=== PATIENT | female | born 1930 | race Caucasian/White ===

== ENCOUNTER 2016-09-24 13:16 | Inpatient (IN) | payer MEDICARE, OTHER ==
--- NOTE | ~2016-09-24 | CN ---
Consultation Report [facility] [address] [place]. [address] NAME: BARTOLOME PERALTA : 28 STATUS : ADM IN [facility]#: [id number] AGE: 86 ADM/REG DATE : 09/24/16 MR#: [id number] REPORT SERV DATE: 09/28/16 DICTATED BY: ABEL BRUNSON DATE: 09/28/16 REPORT STATUS : Draft TRANSCRIBED BY: MODDavid DATE: 09/28/16 INFECTIOUS DISEASE CONSULT DATE OF CONSULTATION: REASON FOR REFERRAL: Evaluation and treatment of pneumococcal pneumonia and sepsis. HISTORY OF PRESENT ILLNESS: The patient is an 86-year-old female with a history of overall good health. She has hyperlipidemia and hypothyroidism. She has had episodes of paroxysmal atrial fibrillation. She came in on 09/24/2016, feeling quite ill. She had become ill one week before with fever, cough, increased shortness of breath. It grew progressively worse to the point she was having trouble getting around on the day of admission. She had atrial fibrillation with rapid ventricular response, fever over 101, a white blood cell count that was elevated at 13,000. A chest x-ray in the emergency room showed a right lower lobe pneumonia. Cultures were taken, and she was begun empirically on Rocephin and azithromycin. She had a positive urine antigen for pneumococcus and also blood cultures were positive for the organism two of two, with the sensitivity that appeared on 09/26/2016 showing it to be pansensitive. She was changed to Levaquin, but became confused, started having hallucinations and felt that she was going to , so that was changed yesterday back to Rocephin. She has been afebrile since the second hospital day. Her white blood cell counts decreased to normal. She has not had any further chest x-rays, but she feels much better, getting up and walking with only minimal assistance. She says she has had pneumococcal immunizations twice in the past, but she is not sure if she has had the Prevnar. PAST MEDICAL HISTORY: Otherwise unremarkable. MEDICATIONS: As mentioned above. ALLERGIES: NO KNOWN ANTIMICROBIAL ALLERGIES, THOUGH OBVIOUSLY SHE HAS INTOLERANCE TO LEVAQUIN. SOCIAL HISTORY: She is , lives with her sister, lifelong nonsmoker. No history of alcohol or substance abuse. FAMILY HISTORY: Noncontributory. PHYSICAL EXAMINATION: GENERAL: A nontoxic, elderly female, in no acute distress. She is alert and oriented x3. VITAL SIGNS: Temperature at present 96.9, pulse 112, respirations 18, blood pressure 142/82. Her weight is 86 kg. HEENT: Sclerae are clear. No oral lesions. NECK: Supple without lymphadenopathy or meningeal signs. LUNGS: There is still heavy rhonchi heard in the right base, but no signs of consolidation. Consultation Report [address] [place] [facility] [address] NAME: BARTOLOME PERALTA : 29 STATUS : ADM IN PAT#: [id number] AGE: 86 ADM/REG DATE : 09/24/16 MR#: [id number] REPORT SERV DATE: 09/28/16 DICTATED BY: ABEL BRUNSON DATE: 09/28/16 REPORT STATUS : Draft TRANSCRIBED BY: ANTELMO DATE: 09/28/16 HEART: Irregular. ABDOMEN: Soft, nontender. Positive bowel sounds. EXTREMITIES: Without clubbing or cyanosis. Some mild edema in her lower extremities, but no signs of cellulitis or soft tissue lesions. IV site shows no signs of inflammation. LABORATORY DATA: White blood cell count at admission was 13,000 with unremarkable differential. It is 6.7 today with hematocrit of 41.6 and platelets 258. BUN and creatinine 16 and 0.84. Procalcitonin 4.73 when she came in, was 2.11 when checked last yesterday. IMPRESSION: Pneumococcal pneumonia with associated sepsis. She has responded exceptionally well considering her age to antibiotics so far. RECOMMENDATIONS: 1. I agree with all the antibiotic therapy that has been given thus far. 2. I would recommend five more days because of positive blood cultures, but she is doing so well, I think that could be changed to oral amoxicillin. 3. We will follow if she stays, though I think she is doing well enough that when she gets her dose of Rocephin today, which will cover her with IV level therapy for 24 hours, she could probably be discharged late this afternoon and continue the amoxicillin at home. I appreciate very much your consulting on this patient. ROMY Abel Brunson M.D. / [id number] CC: Karely ePng M.D.
--- NOTE | ~2016-09-24 | DS ---
Discharge Summary [address] [place]. [address] NAME: BARTOLOME PERALTA : 28 STATUS : DIS IN PAT#: [id number] AGE: 86 ADM/REG DATE : 09/24/16 MR#: [id number] REPORT SERV DATE: 09/29/16 DICTATED BY: KEN DENNY DATE: 09/28/16 REPORT STATUS : Draft TRANSCRIBED BY: MODL DATE: 09/28/16 ADMISSION DATE: 09/24/2016 DISCHARGE DATE: 09/28/2016 DISCHARGE DIAGNOSES: 1. Streptococcal pneumonia, sepsis. 2. Streptococcal pneumonia, bacteremia. 3. Streptococcal pneumonia, pneumonia. 4. Adverse drug reaction to Levaquin with hallucinations and insomnia. 5. Hypertension history. 6. Orthostatic hypotension on home blood pressure regimen. 7. Chronic atrial fibrillation. 8. History of deep venous thrombosis. 9. Chronic Coumadin anticoagulation. 10.Deconditioning associated with present illness. 11.Hyperlipidemia. 12.Gastroesophageal reflux disease. 13.Hypothyroidism. 14.Depression. 15.Prediabetes. OPERATIONS AND PROCEDURES: None. PRESENT ILLNESS: This is an 86-year-old white female who was triaged in the emergency room on 09/24/2016 at 1316 hours with symptoms of fainting, chilling, and coughing blood. Her admission vital signs were blood pressure 146/76, temp 99.5, pulse 138, respirations 18, and O2 saturation 95%. In the emergency room, an EKG showed atrial fibrillation with rapid ventricular response and a chest x-ray showed a right lower lobe pneumonia. She was referred to the hospitalist service for admission. She was seen by Dr. Guzman and admitted as described on admission history and physical examination. Additional history included a week of not feeling well with subjective fevers, cough, bloody sputum, and shortness of breath. ADDITIONAL HISTORY: Per Dr. Guzman. PHYSICAL EXAMINATION: Per Dr. Guzman. ADMISSION LABORATORY: Per Dr. Guzman. HOSPITAL COURSE: She was admitted to [address] [place] [address] with: Discharge Summary [address] [place]. [address] NAME: BARTOLOME PERALTA : 28 STATUS : DIS IN PAT#: [id number] AGE: 86 ADM/REG DATE : 09/24/16 MR#: [id number] REPORT SERV DATE: 09/29/16 DICTATED BY: KEN DENNY DATE: 09/28/16 REPORT STATUS : Draft TRANSCRIBED BY: MODDavid DATE: 09/28/16 1. Community-acquired pneumonia with sepsis. 2. Atrial fibrillation with rapid ventricular response. All in the setting of the above-mentioned comorbidities. On admission, cultures were obtained. She was started on Rocephin and Zithromax. A Cardizem drip was initiated along with her home medications. She was seen by Dr. Guzman on 09/24/2016, 09/25/2016, and 09/26/2016. On 09/26/2016, she had significantly improved and was transitioned to p.o. Levaquin with the possibility of 09/27/2016 discharge. She was seen by the undersigned on 09/27/2016. She felt weaker. She had orthostatic symptoms. She was having visual hallucinations without headache or other focal neurologic symptoms. She had not slept the previous night. From a pneumonia standpoint, her cough and dyspnea were improved as was her appetite. On exam, she was orthostatic. She was nonfocal neurologically. It was felt she was having an adverse drug reaction from Levaquin and was orthostatic from her home antihypertensive therapy. Her blood cultures were positive for streptococcal pneumonia. Her urinary antigen was also positive. She was placed back on Rocephin. Her antihypertensive therapy was adjusted. When seen on 09/28/2016 at approximately 11:20, she was still weak, but her hallucinations had largely resolved. She had slept. She had minimal cough and dyspnea. Her appetite was improved. Her orthostasis had improved. She thought she could manage at home. ID consultation was obtained for consideration of parenteral antibiotic therapy at home. She was seen by Dr. Shaheen Blankenship. He thought she was doing so well that she could be changed to oral amoxicillin to complete five further days of therapy and could safely be discharged. She was seen again by the undersigned at 1630 hours. She was ambulated with her walker. She was steady with ambulation. Her O2 sats remained well above 90 at rest and walking. She did have some increase in her atrial fibrillation rate with activity from 83 lying, 100 sitting, 126 walking. Her blood pressure post walking was 111/79. At this point, it was felt she had achieved a level of improvement and stability where she could be safely discharged home. She has family support. She will also have home health care arranged for physical therapy eval and treatment, medication reconciliation, and home evaluation. She will continue her home diet. She was asked to see Dr. Rivas within one week. Discharge Summary [address] [place]. [address] NAME: BARTOLOME PERALTA : 28 STATUS : DIS IN PAT#: [id number] AGE: 86 ADM/REG DATE : 09/24/16 MR#: [id number] REPORT SERV DATE: 09/29/16 DICTATED BY: KEN DENNY DATE: 09/28/16 REPORT STATUS : Draft TRANSCRIBED BY: MODDavid DATE: 09/28/16 DISCHARGE MEDICATIONS: Pending outpatient followup: Lexapro 10 mg daily; Synthroid 75 mcg daily; Toprol-XL 25 mg daily, dose to be escalated next week if AFib rate not controlled with activity; Coumadin 3 mg Monday, Monday, Monday, Monday, Monday, 2 mg Monday and ; Coumadin to be started in 24 hours, noting INR of 2.8 today; Benadryl 25 mg at night as needed; tramadol 50 mg twice daily as needed; amoxicillin 500 mg twice daily, #15. Pending outpatient followup, she will take lisinopril 20 mg daily rather than twice daily and she will not use nifedipine ER, Catapres 0.1 mg as needed or Lasix 40 mg twice daily with potassium. Discharge time greater than 30 minutes. DD/MODL Ken Denny M.D. / [id number] CC: Ken Denny M.D. Karely Pérez M.D.
--- NOTE | ~2016-09-24 | HP ---
History And Physical [id number] [place]. [address] NAME: BARTOLOME PERALTA : 28 STATUS : ADM IN [facility]#: [id number] AGE: 86 ADM/REG DATE : 09/24/16 MR#: [id number] REPORT SERV DATE: 09/24/16 DICTATED BY: YEYO GUZMAN DATE: 09/24/16 REPORT STATUS : Draft TRANSCRIBED BY: MODL DATE: 09/24/16 DATE OF ADMISSION: 09/24/2016 CHIEF COMPLAINT: Shortness of breath and feeling bad all over. HISTORY OF PRESENT ILLNESS: This is an 86-year-old lady with a history of paroxysmal AFib, hyperlipidemia, hypothyroidism, DVT amongst many other medical problems, presenting with a shortness of breath and feeling bad all over. The patient reports that she was in her usual state of health up until about a week ago when she started getting sick. The patient reports that she has been just simply feeling bad all over. The patient did have fevers, but no chills. The patient did have also cough that was productive of thick sputum that was sometimes bloody. The patient reports having had some shortness of breath, although it was not too terrible. After week of trying to rest off at home, the patient decided to come to the ER for further evaluation when her symptoms did not improve. In the ER, the patient was found to be quite tachycardic with heart rate of 138 upon initial presentation. The patient was found to be in AFib with RVR. The patient was otherwise hemodynamically stable. Initial [place] [address]. Chest x-ray demonstrated a quite clear right lower lobe pneumonia. Internal Medicine consultation was requested for admission of the patient for further evaluation and care. REVIEW OF SYSTEMS: The patient again admitted to having had some fevers at home, subjective. Otherwise, 14- point review of systems reviewed and negative other than mentioned above. MEDICATIONS: 1. Catapres 0.1 mg p.o. as needed for systolic blood pressure greater than 180. 2. Benadryl 25 mg to 50 mg p.o. q.h.s. p.r.n. 3. Lexapro 10 mg p.o. daily. 4. Lasix 40 mg p.o. b.i.d. 5. Synthroid 75 mcg p.o. daily. 6. Lisinopril 20 mg p.o. b.i.d. 7. Toprol 25 mg p.o. daily. 8. Nifedipine 30 mg p.o. daily. 9. Klor-Con 20 mEq p.o. b.i.d. 10.Ultram 50 mg p.o. b.i.d. p.r.n. 11.Coumadin 2 mg p.o. Tuesdays and and 3 mg on Monday, Monday, Monday, Monday, and Monday. ALLERGIES: NKDA. PAST MEDICAL HISTORY: 1. Paroxysmal AFib. 2. History of DVT. 3. Chronic kidney disease, although her creatinine today is 1.0. 4. Obesity. History And Physical [address] [address] NAME: BARTOLOME PERALTA : 28 STATUS : ADM IN [facility]#: [id number] AGE: 86 ADM/REG DATE : 09/24/16 MR#: [id number] REPORT SERV DATE: 09/24/16 DICTATED BY: YEYO GUZMAN DATE: 09/24/16 REPORT STATUS : Draft TRANSCRIBED BY: ANTELMO DATE: 09/24/16 5. Hyperlipidemia. 6. Hypothyroidism. 7. GERD. PAST SURGICAL HISTORY: 1. Hysterectomy. 2. Cardioversion. 3. Cataracts. FAMILY HISTORY: Negative and non-pertinent, especially at her age of 86. SOCIAL HISTORY: The patient does not smoke, drink alcohol, or use any illicit drugs. The patient lives at home with her sister. PHYSICAL EXAMINATION: VITAL SIGNS: Temperature 99.5, blood pressure 146/76, pulse 138, respiratory rate is 18, saturating 95% on room air. NEURO: The patient is alert and oriented x3 with no focal neurologic deficits. GENERAL: The patient is awake, does not appear to be in acute distress, and she is cooperative. NECK: No JVD. No lymphadenopathy. Normal thyroid. CHEST: No midline sternotomy scar and no tenderness to palpation. LUNGS: Clear to auscultation bilaterally with some rhonchi in the right lung base. The patient otherwise has fairly normal respiratory effort on room air. CARDIOVASCULAR: The patient is quite tachycardic, but otherwise, no murmurs, rubs, or gallops, and PMI is nondisplaced. ABDOMEN: Soft, nontender, with active bowel sounds and no organomegaly. EXTREMITIES: No edema. Normal distal pulses. No calf tenderness. SKIN: Clean, dry, warm, and intact. LABORATORY DATA: Sodium is 140, potassium 3.4, chloride 105, BUN 17, creatinine 1.0, glucose 133. LFTs are benign. CBC: White blood cell count is 13.0, hemoglobin 13.9, platelets 223, INR is 2.1. Chest x-ray is personally interpreted and it shows a right lower lobe pneumonia. Influenza panel was negative for both influenza A and B. ASSESSMENT: This is an 86-year-old lady with history of paroxysmal atrial fibrillation amongst many other medical conditions, presenting with a community-acquired pneumonia with sepsis. 1. Community-acquired pneumonia with sepsis. 2. Atrial fibrillation with rapid ventricular response. 3. History of deep vein thrombosis. 4. Chronic kidney disease, although her creatinine today is 1.0. 5. Obesity. 6. Hyperlipidemia. 7. Gastroesophageal reflux disease. 8. The patient is chronically anticoagulated with Coumadin. History And Physical [address] [address] NAME: BARTOLOME PERALTA : 28 STATUS : ADM IN [facility]#: [id number] AGE: 86 ADM/REG DATE : 09/24/16 MR#: [id number] REPORT SERV DATE: 09/24/16 DICTATED BY: YEYO GUZMAN DATE: 09/24/16 REPORT STATUS : Draft TRANSCRIBED BY: MODDavid DATE: 09/24/16 PLAN: My plan is to admit the patient under telemetry monitoring. The patient will be given oxygen support and bronchodilator therapy. The patient will be empirically treated with IV Rocephin and Zithromax. I will check blood cultures, sputum cultures, procalcitonin level as well as urinary antigens for Strep and Legionella. For the AFib with RVR, I will monitor her symptomatically and start her on Cardizem drip as needed to better control her heart rate. Otherwise, for the rest of stable past medical conditions including chronic kidney disease, hyperlipidemia, hypothyroidism, GERD, et al., I will continue home medications. Standard DVT prophylaxis. The patient is full code at this time. LUIS ARMANDO/ANTELMO Yeyo Guzman MD / [id number] CC: MD Bartolome Dutton M.D.
[~2016-09-24 13:16] MED LIST: BETAPACE80 PO; BIST PO; C2 PO; C25 PO; C5 PO; CALCIUM; CAT1 PO; CEFT5 PO; CORDARONE PO; COZ25 PO; DRONED400 PO; FOS10 PO; HYDROCHLOROT12.5 MG PO; IMDUR120 PO; KDUR20 PO; L40 PO; LEXAPRO10 PO; LOP100 PO; LOP50 PO; MAX25 PO; MINIPRESS 1 MG C1 MG OR; MINIPRESS1 MG OR; PCET PO; PRAVACHOL40 MG PO; PRIN20 PO; PRINZIDE PO; SYN075 PO; TOPXL25 PO; ULTRAM50 PO; ZESTORETIC1 TA1 PO
[2016-09-24 14:35] LABS: BASOPHILS 0 %; EOSINOPHILS 0 %; HEMATOCRIT 40.7 % (36.0-48.0); HEMOGLOBIN 13.9 g/dL (12.0-16.0); IMMATURE GRANULOCYTES 0.5 %; IMMATURE GRANULOCYTES ABSOLUTE 0.07 10/3/uL (0.0-0.11); LYMPHOCYTES 5.7 %; LYMPHOCYTES ABSOLUTE 0.74 10/3/uL (0.67-4.30); MEAN CORPUS HGB CONC 34.2 g/dL (32.0-36.0); MEAN CORPUSCULAR HEMOGLOB 28.6 pg (26.0-34.0); MONOCYTES 6.8 %; MONOCYTES ABSOLUTE 0.89 10/3/uL (0.21-1.20); PLATELET COUNT 223 10/3/uL (150-400); RBC DISTRIBUTION WIDTH 14.7 % (12.0-16.0); RED CELL COUNT 4.86 10/6/uL (4.0-5.6)
[2016-09-24 14:37] LABS: ER CBC TAT 0 Hrs 08 Mins; MANUAL DIFF NO %; MEAN CORPUSCULAR VOLUME 83.7 fL (80-100)
[2016-09-24 14:43] LABS: INTERNATIONAL NORMAL RATI 2.1 UNITS (-); PROTIME (NOT ORD) 23.6 SEC (12.0-14.5)
[2016-09-24 14:44] LABS: PARTIAL THROMBO TIME 40.9 SEC (22.5-37.2)
[2016-09-24] MEDS ORDERED: ADALAT CC30 MG PO (14:49)
[2016-09-24] MEDS ORDERED: LEXAPRO10 PO (14:50)
[2016-09-24] MEDS ORDERED: ULTRAM50 PO (14:50)
[2016-09-24] MEDS ORDERED: CAT1 PO (14:50)
[2016-09-24] MEDS ORDERED: PRIN20 PO (14:50)
[2016-09-24] MEDS ORDERED: BEN25 PO (14:50)
[2016-09-24 14:51] LABS: A/G RATIO 0.8 (0.7-1.9); ALBUMIN 3.1 G/DL (3.5-5.0); ALKALINE PHOSPHATASE 72 U/L (45-117); BUN (BLOOD UREA NITROGEN) 17 MG/DL (6-23); CALCIUM, SERUM 8.6 MG/DL (8.5-10.4); CHLORIDE, SERUM 105 MMOL/L (96-112); CO2 (CARBON DIOXIDE) 22 MMOL/L (24-34); GFR AFRICAN AMERICAN 59 ML/MIN (>=60); GFR NON AFRICAN AMERICAN 51 ML/MIN (>=60); GLOBULIN 3.9 G/DL (2.5-4.1); GLUCOSE, SERUM 133 MG/DL (60-99); POTASSIUM, SERUM 3.4 MMOL/L (3.5-5.3); SGOT(AST) 18 U/L (5-40); SGPT(ALT) 22 U/L (5-65); SODIUM, SERUM 140 MMOL/L (135-148); TOTAL BILIRUBIN 1.1 MG/DL (0-1.2)
[2016-09-24] MEDS ORDERED: SYN075 PO (14:51)
[2016-09-24] MEDS ORDERED: L40 PO (14:51)
[2016-09-24] MEDS ORDERED: COUMADIN3 MG PO (14:52)
[2016-09-24] MEDS ORDERED: C2 PO (14:53)
[2016-09-24] MEDS ORDERED: TOPXL25 PO (14:53)
[2016-09-24] MEDS ORDERED: KLOR-CON M2020 MEQ PO (14:53)
[2016-09-24 15:07] LABS: INFLUENZA A SCREEN NEGATIVE (NEGATIVE); INFLUENZA B SCREEN NEGATIVE (NEGATIVE)
[2016-09-24 20:09] LABS: TROPONIN I 0.04 NG/ML (<0.05)
[2016-09-24 20:12] LABS: ULTRASENSITIVE TSH 0.531 MCIU/ML (0.358-3.740)
[2016-09-24 20:23] LABS: PROCALCITONIN 4.73 ng/mL (<0.5)
[2016-09-25 06:23] LABS: BASOPHILS 0.1 %; BASOPHILS ABSOLUTE 0.01 10/3/uL (0.0-0.16); BUN (BLOOD UREA NITROGEN) 19 MG/DL (6-23); CALCIUM, SERUM 8.3 MG/DL (8.5-10.4); CHLORIDE, SERUM 107 MMOL/L (96-112); CO2 (CARBON DIOXIDE) 23 MMOL/L (24-34); CREATININE 0.82 MG/DL (0.55-1.02); EOSINOPHILS 0 %; GFR AFRICAN AMERICAN 75 ML/MIN (>=60); GFR NON AFRICAN AMERICAN 64 ML/MIN (>=60); GLUCOSE, SERUM 103 MG/DL (60-99); IMMATURE GRANULOCYTES 0.2 %; IMMATURE GRANULOCYTES ABSOLUTE 0.02 10/3/uL (0.0-0.11); LYMPHOCYTES 11.5 %; LYMPHOCYTES ABSOLUTE 1.34 10/3/uL (0.67-4.30); MEAN CORPUS HGB CONC 33.4 g/dL (32.0-36.0); MEAN CORPUSCULAR HEMOGLOB 28.1 pg (26.0-34.0); MEAN CORPUSCULAR VOLUME 84.1 fL (80-100); MEAN PLATELET VOLUME 8.9 fL (9.2-13.0); MONOCYTES 6.9 %; MONOCYTES ABSOLUTE 0.81 10/3/uL (0.21-1.20); NEUTROPHILS 81.3 %; PLATELET COUNT 210 10/3/uL (150-400); POTASSIUM, SERUM 3.5 MMOL/L (3.5-5.3); RBC DISTRIBUTION WIDTH 15.1 % (12.0-16.0); RED CELL COUNT 4.27 10/6/uL (4.0-5.6); SODIUM, SERUM 140 MMOL/L (135-148); WHITE BLOOD CELLS 11.7 10/3/uL (4.5-10.5)
[2016-09-25 06:24] LABS: HEMATOCRIT 35.9 % (36.0-48.0); MANUAL DIFF NO %
[2016-09-25 06:25] LABS: INTERNATIONAL NORMAL RATI 2.7 UNITS (-)
[2016-09-25 06:26] LABS: PROTIME (NOT ORD) 28.4 SEC (12.0-14.5)
[2016-09-26 04:59] LABS: BASOPHILS 0.1 %; BASOPHILS ABSOLUTE 0.01 10/3/uL (0.0-0.16); EOSINOPHILS 0.2 %; EOSINOPHILS ABSOLUTE 0.02 10/3/uL (0.0-0.53); HEMATOCRIT 39.2 % (36.0-48.0); HEMOGLOBIN 13.2 g/dL (12.0-16.0); IMMATURE GRANULOCYTES 0.6 %; IMMATURE GRANULOCYTES ABSOLUTE 0.06 10/3/uL (0.0-0.11); LYMPHOCYTES 9.8 %; LYMPHOCYTES ABSOLUTE 0.95 10/3/uL (0.67-4.30); MEAN CORPUS HGB CONC 33.7 g/dL (32.0-36.0); MEAN CORPUSCULAR HEMOGLOB 28.8 pg (26.0-34.0); MEAN CORPUSCULAR VOLUME 85.4 fL (80-100); MONOCYTES 6.4 %; MONOCYTES ABSOLUTE 0.62 10/3/uL (0.21-1.20); NEUTROPHILS 82.9 %; NEUTROPHILS ABSOLUTE 8.02 10/3/uL (2.02-8.40); PLATELET COUNT 239 10/3/uL (150-400); RBC DISTRIBUTION WIDTH 14.9 % (12.0-16.0); RED CELL COUNT 4.59 10/6/uL (4.0-5.6); WHITE BLOOD CELLS 9.7 10/3/uL (4.5-10.5)
[2016-09-26 05:00] LABS: MANUAL DIFF NO %
[2016-09-26 05:05] LABS: INTERNATIONAL NORMAL RATI 2.7 UNITS (-); PROTIME (NOT ORD) 28.2 SEC (12.0-14.5)
[2016-09-26 05:14] LABS: BUN (BLOOD UREA NITROGEN) 15 MG/DL (6-23); CALCIUM, SERUM 8.4 MG/DL (8.5-10.4); CHLORIDE, SERUM 107 MMOL/L (96-112); CO2 (CARBON DIOXIDE) 24 MMOL/L (24-34); CREATININE 0.83 MG/DL (0.55-1.02); GFR AFRICAN AMERICAN 73 ML/MIN (>=60); GFR NON AFRICAN AMERICAN 63 ML/MIN (>=60); GLUCOSE, SERUM 131 MG/DL (60-99); POTASSIUM, SERUM 3.6 MMOL/L (3.5-5.3); SODIUM, SERUM 142 MMOL/L (135-148)
[2016-09-26 06:58] LABS: PROCALCITONIN 2.99 ng/mL (<0.5)
[2016-09-27 04:48] LABS: BASOPHILS 0.2 %; BASOPHILS ABSOLUTE 0.01 10/3/uL (0.0-0.16); EOSINOPHILS 0.3 %; EOSINOPHILS ABSOLUTE 0.02 10/3/uL (0.0-0.53); HEMATOCRIT 40.2 % (36.0-48.0); HEMOGLOBIN 13.4 g/dL (12.0-16.0); IMMATURE GRANULOCYTES 0.3 %; IMMATURE GRANULOCYTES ABSOLUTE 0.02 10/3/uL (0.0-0.11); LYMPHOCYTES ABSOLUTE 1.18 10/3/uL (0.67-4.30); MANUAL DIFF NO %; MEAN CORPUS HGB CONC 33.3 g/dL (32.0-36.0); MEAN CORPUSCULAR HEMOGLOB 28.2 pg (26.0-34.0); MEAN CORPUSCULAR VOLUME 84.6 fL (80-100); MONOCYTES 8.4 %; MONOCYTES ABSOLUTE 0.52 10/3/uL (0.21-1.20); NEUTROPHILS 71.8 %; NEUTROPHILS ABSOLUTE 4.45 10/3/uL (2.02-8.40); PLATELET COUNT 263 10/3/uL (150-400); RBC DISTRIBUTION WIDTH 14.6 % (12.0-16.0); RED CELL COUNT 4.75 10/6/uL (4.0-5.6); WHITE BLOOD CELLS 6.2 10/3/uL (4.5-10.5)
[2016-09-27 04:51] LABS: INTERNATIONAL NORMAL RATI 2.9 UNITS (-); PROTIME (NOT ORD) 30.2 SEC (12.0-14.5)
[2016-09-27 05:03] LABS: BUN (BLOOD UREA NITROGEN) 13 MG/DL (6-23); CALCIUM, SERUM 8.7 MG/DL (8.5-10.4); CHLORIDE, SERUM 104 MMOL/L (96-112); CO2 (CARBON DIOXIDE) 26 MMOL/L (24-34); CREATININE 0.78 MG/DL (0.55-1.02); GFR AFRICAN AMERICAN 79 ML/MIN (>=60); GFR NON AFRICAN AMERICAN 68 ML/MIN (>=60); POTASSIUM, SERUM 3.7 MMOL/L (3.5-5.3); SODIUM, SERUM 141 MMOL/L (135-148)
[2016-09-27 05:07] LABS: GLUCOSE, SERUM 101 MG/DL (60-99)
[2016-09-27 06:43] LABS: PROCALCITONIN 2.11 ng/mL (<0.5)
[2016-09-28 06:18] LABS: BASOPHILS 0.3 %; BASOPHILS ABSOLUTE 0.02 10/3/uL (0.0-0.16); EOSINOPHILS 0.6 %; EOSINOPHILS ABSOLUTE 0.04 10/3/uL (0.0-0.53); HEMATOCRIT 41.6 % (36.0-48.0); HEMOGLOBIN 13.9 g/dL (12.0-16.0); IMMATURE GRANULOCYTES 0.6 %; IMMATURE GRANULOCYTES ABSOLUTE 0.04 10/3/uL (0.0-0.11); LYMPHOCYTES 21.5 %; LYMPHOCYTES ABSOLUTE 1.44 10/3/uL (0.67-4.30); MEAN CORPUS HGB CONC 33.4 g/dL (32.0-36.0); MEAN CORPUSCULAR HEMOGLOB 28.4 pg (26.0-34.0); MEAN CORPUSCULAR VOLUME 84.9 fL (80-100); MEAN PLATELET VOLUME 8.6 fL (9.2-13.0); MONOCYTES 11.4 %; MONOCYTES ABSOLUTE 0.76 10/3/uL (0.21-1.20); NEUTROPHILS 65.6 %; NEUTROPHILS ABSOLUTE 4.39 10/3/uL (2.02-8.40); PLATELET COUNT 258 10/3/uL (150-400); RBC DISTRIBUTION WIDTH 14.7 % (12.0-16.0); WHITE BLOOD CELLS 6.7 10/3/uL (4.5-10.5)
[2016-09-28 06:21] LABS: MANUAL DIFF NO %
[2016-09-28 06:26] LABS: INTERNATIONAL NORMAL RATI 2.8 UNITS (-); PROTIME (NOT ORD) 29.4 SEC (12.0-14.5)
[2016-09-28 06:31] LABS: BUN (BLOOD UREA NITROGEN) 16 MG/DL (6-23); CALCIUM, SERUM 8.9 MG/DL (8.5-10.4); CHLORIDE, SERUM 107 MMOL/L (96-112); CO2 (CARBON DIOXIDE) 26 MMOL/L (24-34); CREATININE 0.84 MG/DL (0.55-1.02); GFR AFRICAN AMERICAN 72 ML/MIN (>=60); GFR NON AFRICAN AMERICAN 62 ML/MIN (>=60); GLUCOSE, SERUM 102 MG/DL (60-99); SODIUM, SERUM 142 MMOL/L (135-148)
[2016-09-28] MEDS ORDERED: AMOXIL500 MG PO (17:28)
== END 2016-09-28 18:30 | disposition home health service (06) | DRG 871 ==
LOC: ER 13:16 → 6NO 16:13
PROVIDERS: Hospitalist; Internal Medicine
DX: A40.3 Sepsis due to Streptococcus pneumoniae (principal); J13 Pneumonia due to Streptococcus pneumoniae; I48.0 Paroxysmal atrial fibrillation; R44.3 Hallucinations, unspecified; G47.00 Insomnia, unspecified; T37.8X5A Adverse effect of other specified systemic anti-infectives and antiparasitics, initial encounter; I48.2 Chronic atrial fibrillation; K21.9 Gastro-esophageal reflux disease without esophagitis; E66.9 Obesity, unspecified; I95.1 Orthostatic hypotension; R73.03 Prediabetes; E78.5 Hyperlipidemia, unspecified; Z79.01 Long term (current) use of anticoagulants; Z86.718 Personal history of other venous thrombosis and embolism; Z90.710 Acquired absence of both cervix and uterus; Z68.35 Body mass index [BMI] 35.0-35.9, adult
CPT/HCPCS: 71010; 80048; 80053; 82962; 83036; 84145; 84443; 84484; 85025; 85610; 85730; 87040; 87070; 87077; 87150; 87186; 87205; 87449; 87804; 93005; 96365; 96375; 97161-GP; 97530-GP; 99291; A9270-GY; G8978-CK-GP; G8979-CI-GP; J0456